=== PATIENT | male | born 1990 | race Caucasian/White ===

== ENCOUNTER 2016-11-14 21:39 | Emergency (ER) | payer OTHER ==
[2016-11-14] MEDS ORDERED: OPTIRAY 350 100 ML VIAL HMH IV ONE (21:40)
[2016-11-15] MEDS ORDERED: SODIUM CHLORIDE 0.9% 1,000 ML ONE (00:28)
[2016-11-15] MEDS ORDERED: ONDANSETRON 4 MG VIAL ONE (00:28)
== END 2016-11-15 03:36 | disposition home or self-care (01) ==
LOC: ER 21:39
CPT/HCPCS: 36415; 74177; 80053; 81003; 82274; 83690; 85025; 96361; 96374